=== PATIENT | female | born 1950 | race Caucasian/White ===

== ENCOUNTER 2020-05-22 21:45 | Emergency (ER) | payer MEDICARE, OTHER ==
[2020-05-22] MEDS ORDERED: Ondansetron 4 MG Tab.DIS PO ONE (22:24)
[2020-05-22] MEDS ORDERED: Lactated Ringers 1,000 ML IV ONE (22:27)
--- NOTE | 2020-05-22 22:34 | EDM.PDOC ---
ED HPI GENERAL MEDICAL PROBLEM - General Chief Complaint: Abdominal Pain Stated Complaint: DRY HEAVES Time Seen by Provider: 05/22/20 22:15 Source of Information: Reports: Patient, Family, Old Records, RN History Limitations: Reports: No Limitations - History of Present Illness INITIAL COMMENTS - FREE TEXT/NARRATIVE: 70 yo female with a hx of a functioning ileostomy and frequent bouts of diarrhea related to this presents with her for abrupt onset a few hrs ago of diarrhea, abdominal cramping, and vomiting. No fever, but has chills. No known exposures. 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 DIRECTOR: Reports: Other (see below) (loperamide) Abdomen Pain Score (Numeric/FACES): 10 - Related Data Allergies Allergy/AdvReac Type Severity Reaction Status Date / Time cobalt Allergy Swelling Verified 05/22/20 22:04 nickel Allergy Swelling Verified 05/22/20 22:04 contrast dye Allergy Swelling Uncoded 05/22/20 22:04 Home Meds: Home Meds Loperamide [Imodium] 2 mg PO ASDIRECTED 05/22/20 [History] Past Medical History Cardiovascular History: Reports: Other (See Below) 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 Respiratory History: Reports: Other (See Below) Other Respiratory History: only the right lung works Phrenic nerve cut on the left for the heart tumor surgery Gastrointestinal History: Reports: Other (See Below) Other Gastrointestinal History: crohns Genitourinary History: Reports: None 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: Musculoskeletal History: Reports: None Neurological History: Reports: None Psychiatric History: Reports: None Endocrine/Metabolic History: Reports: None Hematologic History: Reports: B12 Deficiency Immunologic History: Reports: None Oncologic (Cancer) History: Reports: Breast, Malignant Melanoma Dermatologic History: Reports: Eczema, Urticaria - Infectious Disease History Infectious Disease History: Reports: Chicken Pox, Measles, Mumps - Past Surgical History HEENT Surgical History: Reports: Other (See Below) Other HEENT Surgeries/Procedures: Throat surgery Cardiovascular Surgical History: Reports: Other (See Below) Other Cardiovascular Surgeries/Procedures: tumor removed from top of heart GI Surgical History: Reports: Colon, Other (See Below) Other GI Surgeries/Procedures: iliostomy Social & Family History - Tobacco Use Tobacco Use Status *Q: Former Tobacco User Used Tobacco, but Quit: Yes Month/Year Tobacco Last Used: 25 years - Caffeine Use Caffeine Use: Reports: Coffee - Recreational Drug Use Recreational Drug Use: No ED ROS GENERAL - Review of Systems Review Of Systems: See Below Constitutional: Reports: Malaise, Decreased Appetite HEENT: Reports: No Symptoms Respiratory: Reports: No Symptoms Cardiovascular: Reports: No Symptoms Endocrine: Reports: No Symptoms GI/Abdominal: Reports: Abdominal Pain, Diarrhea, Nausea, Vomiting. Denies: Black Stool, Bloody Stool, Constipation, Distension, Hematemesis, Hematochezia : Reports: No Symptoms Musculoskeletal: Reports: No Symptoms Skin: Reports: No Symptoms Neurological: Reports: No Symptoms Psychiatric: Reports: No Symptoms ED EXAM, GI/ABD - Physical Exam Exam: See Below Exam Limited By: No Limitations General Appearance: Alert, WD/WN, Mild Distress Eyes: Bilateral: Normal Appearance Ears: Normal External Exam, Normal Canal, Hearing Grossly Normal, Normal TMs Nose: Normal Inspection, No Blood Throat/Mouth: Normal Inspection, Normal Lips, Normal Oropharynx, Normal Voice, No Airway Compromise Head: Atraumatic, Normocephalic Neck: Normal Inspection Respiratory/Chest: No Respiratory Distress, Lungs Clear, Normal Breath Sounds, No Accessory Muscle Use Cardiovascular: Regular Rate, Rhythm, No Edema GI/Abdominal Exam: No Distention, Tender (mild, diffuse), Abnormal Bowel Sounds (increased). No: Distended, Guarding, Rigid, Rebound Extremities: Normal Inspection, Normal Range of Motion, Non-Tender, No Pedal Edema Neurological: Alert, Oriented, CN II-XII Intact, Normal Cognition, No Motor/Se nsory Deficits Psychiatric: Normal Affect, Normal Mood Skin Exam: Warm, Dry, Intact, Normal Color, No Rash Course - Vital Signs Last Recorded V/S: Last Vital Signs Temp 36.1 C 05/22/20 21:56 Pulse 91 05/22/20 23:33 Resp 16 05/22/20 23:33 BP 135/67 05/22/20 23:33 Pulse Ox 95 05/22/20 23:33 - Orders/Labs/Meds Orders: Active Orders 24 hr Category Date Time Status CORONAVIRUS COVID-19, MARKIE Routine Lab 05/23/20 01:11 Ordered CULTURE BLOOD [BC] Stat Lab 05/22/20 22:38 Received CULTURE BLOOD [BC] Stat Lab 05/22/20 23:41 Received Lactated Ringers [Ringers, Lactated] 1,000 ml Med 05/23/20 00:45 Active IV ASDIRECTED Medication Orders Lactated Ringer's (Ringers, Lactated) 1,000 mls @ 500 mls/hr IV ASDIRECTED DEDRICK Last Admin: 05/23/20 01:28 Dose: 500 mls/hr Documented by: LORA Labs: Laboratory Tests 05/22/20 05/22/20 05/22/20 Range/Units 22:39 22:39 22:39 WBC 16.5 H (4.5-11.0) K/uL RBC 4.40 (3.30-5.50) M/uL Hgb 14.6 (12.0-15.0) g/dL Hct 42.9 (36.0-48.0) % MCV 98 (80-98) fL MCH 33 H (27-31) pg MCHC 34 (32-36) % Plt Count 350 (150-400) K/uL Sodium 146 (140-148) mmol/L Potassium 3.5 L (3.6-5.2) mmol/L Chloride 105 (100-108) mmol/L Carbon Dioxide 20 L (21-32) mmol/L Anion Gap 24.5 H (5.0-14.0) mmol/L BUN 21 H (7-18) mg/dL Creatinine 1.1 H (0.6-1.0) mg/dL Est Cr Clr Drug Dosing 45.82 mL/min Estimated GFR (MDRD) 49 L (>60) Glucose 179 H (74-106) mg/dL Lactic Acid 4.2 H (0.4-2.0) mmol/L Calcium 10.6 H (8.5-10.1) mg/dL C-Reactive Protein 0.57 H (0.0-0.3) mg/dL Urine Color (YELLOW) Urine Appearance (CLEAR) Urine pH (5.0-8.0) Ur Specific [place] (1.008-1.030) Urine Protein (NEGATIVE) mg/dL Urine Glucose (UA) (NEGATIVE) mg/dL Urine Ketones (NEGATIVE) mg/dL Urine Occult Blood (NEGATIVE) Urine Nitrite (NEGATIVE) Urine Bilirubin (NEGATIVE) Urine Urobilinogen (0.2-1.0) EU/dL Ur Leukocyte Esterase (NEGATIVE) Urine RBC (0-5) Urine WBC (0-5) Ur Epithelial Cells Amorphous Sediment Urine Bacteria Urine Mucus 05/23/20 Range/Units 00:26 WBC (4.5-11.0) K/uL RBC (3.30-5.50) M/uL Hgb (12.0-15.0) g/dL Hct (36.0-48.0) % MCV (80-98) fL MCH (27-31) pg MCHC (32-36) % Plt Count (150-400) K/uL Sodium (140-148) mmol/L Potassium (3.6-5.2) mmol/L Chloride (100-108) mmol/L Carbon Dioxide (21-32) mmol/L Anion Gap (5.0-14.0) mmol/L BUN (7-18) mg/dL Creatinine (0.6-1.0) mg/dL Est Cr Clr Drug Dosing mL/min Estimated GFR (MDRD) (>60) Glucose (74-106) mg/dL Lactic Acid (0.4-2.0) mmol/L Calcium (8.5-10.1) mg/dL C-Reactive Protein (0.0-0.3) mg/dL Urine Color Yellow (YELLOW) Urine Appearance Slightly cloudy A (CLEAR) Urine pH 5.0 (5.0-8.0) Ur Specific [place] >= 1.030 (1.008-1.030) Urine Protein Negative (NEGATIVE) mg/dL Urine Glucose (UA) Negative (NEGATIVE) mg/dL Urine Ketones Negative (NEGATIVE) mg/dL Urine Occult Blood Trace-intact H (NEGATIVE) Urine Nitrite Negative (NEGATIVE) Urine Bilirubin Negative (NEGATIVE) Urine Urobilinogen 0.2 (0.2-1.0) EU/dL Ur Leukocyte Esterase Negative (NEGATIVE) Urine RBC 0-5 (0-5) Urine WBC Not seen (0-5) Ur Epithelial Cells Not seen Amorphous Sediment Not seen Urine Bacteria Not seen Urine Mucus Few Meds: Medications Generic Name Dose Route Start Last Admin Trade Name Freq PRN Reason Stop Dose Admin Lactated Ringer's 1,000 mls @ 500 mls/hr 05/23/20 00:45 05/23/20 01:28 Ringers, Lactated IV 500 mls/hr ASDIRECTED DEDRICK Administration Discontinued Medications Generic Name Dose Route Start Last Admin Trade Name Freq PRN Reason Stop Dose Admin Hydromorphone HCl 0.5 mg 05/22/20 22:29 05/22/20 23:04 Hydromorphone 0.5 Mg/0.5 Ml Syringe IVPUSH 05/22/20 22:30 0.5 mg ONETIME ONE Administration Lactated Ringer's 1,000 mls @ 1,000 mls/hr 05/22/20 22:27 05/22/20 23:09 Ringers, Lactated IV 05/22/20 23:26 1,000 mls/hr BOLUS ONE Administration Ondansetron HCl 4 mg 05/22/20 22:24 05/22/20 23:03 Ondansetron 4 Mg Tab.Dis PO 05/22/20 22:25 4 mg ONETIME ONE Administration Ondansetron HCl 4 mg 05/22/20 22:59 05/22/20 23:08 Ondansetron 4 Mg/2 Ml Sdv IVPUSH 05/22/20 23:00 4 mg ONETIME ONE Administration - Radiology Interpretation Free Text/Narrative:: CT abd/pelvis without contrast- Impression: 1. 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 Otherwise no significant abnormality demonstrated along the gastrointestinal tract, within limitations of noncontrast technique. 2. Small nonobstructing left renal stone. No urinary obstruction. Please note that all CT scans at this facility use dose modulation, iterative reconstruction, and/or weight-based dosing when appropriate to reduce radiation dose to as low as reasonably achievable. Dictated by Shane Cook MD @ May 23 2020 12:57AM CT Results Date: 05/22/20 CT Results Time: 01:06 - Re-Assessments/Exams Free Text/Narrative Re-Assessment/Exam: 05/23/20 01:32 Feeling much better after our treatments. Was pretty convinced she wanted to go home. I was able to talk her into staying for another liter of IV fluids. Departure - Departure Time of Disposition: 02:25 Disposition: Home, Self-Care 01 Condition: Fair Clinical Impression: Nausea vomiting and diarrhea, Mild dehydration - Discharge Information *PRESCRIPTION DRUG MONITORING PROGRAM REVIEWED*: Not Applicable *COPY OF PRESCRIPTION DRUG MONITORING REPORT IN PATIENT REYES: Not Applicable Instructions: Diarrhea, Adult, [id number], Nausea and Vomiting, Adult, [id number] Referrals: Malik Holland MD [Primary Care Provider] - Forms: ED Department Discharge Additional Instructions: Take acetaminophen as needed for pain relief. Use Zofran as directed for nausea control. Use loperamide per package instructions as needed for diarrhea control. Drink enough fluids, consider sport drinks, to keep your urine light yellow in color. Eat foods that are easily digested like rice, chicken with rice soup or turkey with rice soup, jello, applesauce, dry white toast, yogurt, bananas, or soda crackers. Return if worse or not improving or consider follow up with your provider. Sepsis Event Note (ED) - Evaluation Sepsis Screening Result: Possible Sepsis Risk - Focused Exam Vital Signs: Vital Signs Temp Pulse Resp BP Pulse Ox 05/22/20 23:33 91 16 135/67 95 05/22/20 21:56 36.1 C 97 44 H 129/67 99 - My Orders Last 24 Hours: My Active Orders 05/22/20 22:38 CULTURE BLOOD [BC] Stat 05/22/20 23:41 CULTURE BLOOD [BC] Stat 05/23/20 00:45 Lactated Ringers [Ringers, Lactated] 1,000 ml IV ASDIRECTED 05/23/20 01:11 CORONAVIRUS COVID-19, MARKIE Routine - Assessment/Plan Last 24 Hours: My Active Orders 05/22/20 22:38 CULTURE BLOOD [BC] Stat 05/22/20 23:41 CULTURE BLOOD [BC] Stat 05/23/20 00:45 Lactated Ringers [Ringers, Lactated] 1,000 ml IV ASDIRECTED 05/23/20 01:11 CORONAVIRUS COVID-19, MARKIE Routine
[2020-05-22] MEDS ORDERED: Ondansetron 4 MG/2 ML SDV IVPUSH ONE (22:59)
[2020-05-22] MEDS: HYDROmorphone 0.5 MG/0.5 ML Syringe IVPUSH ONE (23:04)
[2020-05-23] MEDS ORDERED: Lactated Ringers 1,000 ML IV SCH (00:45)
--- NOTE | 2020-05-23 01:00 | CRLCT ---
Indication: Vomiting, diarrhea, elevated lactic acid Technique: Nonenhanced axial CT imaging through the abdomen and pelvis. Sagittal and coronal reconstructions are provided. Comparison: None Findings: There is unremarkable noncontrast appearance of the liver, gallbladder, spleen, pancreas, and adrenal glands. A 2 mm nonobstructing stone is noted in the lower pole of the left kidney. Kidneys are otherwise unremarkable. There is no abdominal lymphadenopathy. There is normal caliber of the abdominal aorta without significant atherosclerotic changes. The stomach and duodenum are unremarkable. There are surgical changes of total colectomy with left lower quadrant ileostomy. There are no abnormally dilated small bowel loops. There is no mesenteric edema. The urinary bladder is unremarkable. The uterus is absent. There is no adnexal mass or pelvic lymphadenopathy. The osseous structures are unremarkable. The included lung bases are clear. There is moderate elevation of the left hemidiaphragm. Impression: 1. 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 Otherwise no significant abnormality demonstrated along the gastrointestinal tract, within limitations of noncontrast technique. 2. Small nonobstructing left renal stone. No urinary obstruction. Please note that all CT scans at this facility use dose modulation, iterative reconstruction, and/or weight-based dosing when appropriate to reduce radiation dose to as low as reasonably achievable. Dictated by Shane Cook MD @ May 23 2020 12:57AM Signed by Dr. Shane Cook @ May 23 2020 12:57AM
[2020-05-23] MEDS ORDERED: Potassium Chloride 20 MEQ Tab.ER PO ONE (01:36)
== END 2020-05-23 02:45 | disposition home or self-care (01) ==
LOC: JP.ED 21:45
DX: E86.0 Dehydration (principal); R11.2 Nausea with vomiting, unspecified; R19.7 Diarrhea, unspecified; Z91.041 Radiographic dye allergy status; Z91.09 Other allergy status, other than to drugs and biological substances; Z79.899 Other long term (current) drug therapy; Z90.49 Acquired absence of other specified parts of digestive tract; Z87.891 Personal history of nicotine dependence; Z20.822 Contact with and (suspected) exposure to COVID-19
CPT/HCPCS: 36415; 74176; 80048; 81001; 83605; 85027; 86140; 87040; 96374; 96375; 99284; A9270; J1170; J2405; J7120; U0002; 99283

== ENCOUNTER 2020-12-31 08:36 | Emergency (ER) | payer MEDICARE, OTHER ==
--- NOTE | 2020-12-31 09:38 | EDM.PDOC ---
ED HPI GENERAL MEDICAL PROBLEM - General Chief Complaint: Respiratory Problem Stated Complaint: EASILY OUT OF BREATHE Time Seen by Provider: 12/31/20 09:15 Source of Information: Reports: Patient History Limitations: Reports: No Limitations - History of Present Illness INITIAL COMMENTS - FREE TEXT/NARRATIVE: 70-year-old female who tested positive for Covid 5 days ago is in today with mild shortness of breath and weakness. She is very anxious because her is currently in the hospital being treated for Covid. She had monoclonal antibody screening and is scheduled to have this but has not gotten a phone call yet. Coincidently while being evaluated, her phone rang and it was then calling about giving her the therapy. No fevers or chills, no significant shortness of breath, no nausea or vomiting. Onset: Gradual Duration: Day(s): (Ill for the last week) Associated Symptoms: Reports: Cough (Mild intermittent cough), Malaise, Weakness. 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 Respiratory History: Reports: Other (See Below) Other Respiratory History: only the right lung works Phrenic nerve cut on the left for the heart tumor surgery Gastrointestinal History: Reports: Other (See Below) Other Gastrointestinal History: crohns Genitourinary History: Reports: None 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: Musculoskeletal History: Reports: None Neurological History: Reports: None Psychiatric History: Reports: None Endocrine/Metabolic History: Reports: None Hematologic History: Reports: B12 Deficiency Immunologic History: Reports: None Oncologic (Cancer) History: Reports: Breast, Malignant Melanoma Dermatologic History: Reports: Eczema, Urticaria - Infectious Disease History Infectious Disease History: Reports: Chicken Pox, Measles, Mumps, Novel Coronavirus - Past Surgical History HEENT Surgical History: Reports: Other (See Below) Other HEENT Surgeries/Procedures: Throat surgery,partial esophagectomy Cardiovascular Surgical History: Reports: Other (See Below) Other Cardiovascular Surgeries/Procedures: tumor removed from top of heart GI Surgical History: Reports: Colon, Other (See Below) Other GI Surgeries/Procedures: iliostomy Social & Family History - Tobacco Use Tobacco Use Status *Q: Former Tobacco User Years of Tobacco use: 15 Packs/Tins Daily: 1 Used Tobacco, but Quit: Yes Month/Year Tobacco Last Used: 11/1994 - Caffeine Use Caffeine Use: Reports: Coffee, Tea - Recreational Drug Use Recreational Drug Use: No ED ROS GENERAL - Review of Systems Review Of Systems: See Below Constitutional: Reports: Malaise. 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 Denies: Throat Pain Respiratory: Reports: Cough. Denies: Shortness of Breath GI/Abdominal: Reports: No Symptoms Neurological: Reports: Weakness Psychiatric: Reports: Anxiety ED EXAM, GENERAL - Physical Exam Exam: See Below Exam Limited By: No Limitations General Appearance: Alert, No Apparent Distress Eye Exam: Bilateral Eye: Normal Inspection Respiratory/Chest: No Respiratory Distress, Lungs Clear Cardiovascular: Regular Rate, Rhythm. No: Tachycardia GI/Abdominal: Non-Tender Neurological: Alert, Oriented Psychiatric: Normal Affect, Normal Mood Skin Exam: Warm, Dry Course - Vital Signs Last Recorded V/S: Last Vital Signs Temp 96.6 F L 12/31/20 11:46 Pulse 63 12/31/20 11:46 Resp 18 12/31/20 11:46 BP 129/68 12/31/20 11:46 Pulse Ox 100 12/31/20 11:46 - Orders/Labs/Meds Meds: Medications Discontinued Medications Generic Name Dose Route Start Last Admin Trade Name Freq PRN Reason Stop Dose Admin Acetaminophen 650 mg 12/31/20 11:30 Acetaminophen 325 Mg Tab PO ONETIME PRN HEADACHE,CHILLS Diphenhydramine HCl 50 mg 12/31/20 11:30 Diphenhydramine 50 Mg/Ml Sdv IVPUSH ONETIME PRN ALLERGIC RXN Epinephrine HCl 0.3 mg 12/31/20 11:30 Epinephrine 1 Mg/Ml Sdv IM ONETIME PRN ALLERGIC RXN Famotidine 20 mg 12/31/20 11:30 Famotidine 20 Mg/2 Ml Sdv IV ONETIME PRN ALLERGIC RXN Sodium Chloride 1,000 mls @ 25 mls/hr 12/31/20 09:47 12/31/20 09:48 Normal Saline IV 25 mls/hr ASDIRECTED DEDRICK Administration Bamlanivimab 700 mg/ 160 mls @ 310 mls/hr 12/31/20 11:30 12/31/20 10:15 Etesevimab 1,400 mg/ Sodium IV 12/31/20 12:00 310 mls/hr Chloride ONETIME ONE Administration Methylprednisolone Sodium Succinate 125 mg 12/31/20 11:30 Methylprednisolone Sodium Succinate 125 Mg/2 Ml Sdv IVPUSH ONETIME PRN ALLERGIC RXN - Re-Assessments/Exams Free Text/Narrative Re-Assessment/Exam: 12/31/20 09:28 Patient is completely stable, O2 saturations 99% and lungs are clear. She is a good candidate for the monoclonal antibody therapy and she received a call for the order while in the emergency room. This will be set up and given here in the emergency room and then she will be discharged. No further care needed. She can return if worsening. Departure - Departure Time of Disposition: 11:54 Disposition: Home, Self-Care 01 Clinical Impression: COVID-19 - Discharge Information Instructions: COVID-19 Referrals: Malik Holland MD [Primary Care Provider] - Forms: ED Department Discharge Care Plan Goals: Increase activity and diet as tolerated, return if shortness of breath or other concerns. Continue any current medications. Sepsis Event Note (ED) - Evaluation Sepsis Screening Result: No Definite Risk - Focused Exam Vital Signs: Vital Signs Temp Pulse Resp BP Pulse Ox 12/31/20 11:46 96.6 F L 63 18 129/68 100 12/31/20 10:46 96.6 F L 59 L 16 128/68 100 12/31/20 10:30 96.6 F L 61 18 120/65 100 12/31/20 10:15 96.4 F L 18 114/60 99 12/31/20 08:59 97.5 F 63 20 127/76 99
[2020-12-31] MEDS ORDERED: Sodium Chloride 0.9% 1,000 ML IV SCH (09:47)
[2020-12-31] MEDS ORDERED: diphenhydrAMINE 50 MG/ML SDV IVPUSH PRN (11:30)
[2020-12-31] MEDS ORDERED: Famotidine 20 MG/2 ML SDV IV PRN (11:30)
[2020-12-31] MEDS ORDERED: Acetaminophen 325 MG Tab PO PRN (11:30)
[2020-12-31] MEDS ORDERED: EPINEPHrine 1 MG/ML SDV IM PRN (11:30)
[2020-12-31] MEDS ORDERED: methylPREDNISolone Sodium Succinate 125 MG/2 ML SDV IVPUSH PRN (11:30)
[2020-12-31] MEDS ORDERED: Bamlanivimab 700 MG, ETESEVIMAB 1,400 MG in Sodium Chloride 0.9% 100 ML IV ONE (11:30)
== END 2020-12-31 11:55 | disposition home or self-care (01) ==
LOC: JP.ED 08:36
DX: U07.1 COVID-19 (principal); Z88.8 Allergy status to other drugs, medicaments and biological substances; Z91.041 Radiographic dye allergy status; Z91.048 Other nonmedicinal substance allergy status; Z87.891 Personal history of nicotine dependence
CPT/HCPCS: 99284; J7030; M0245; Q0245

== ENCOUNTER 2022-06-17 21:54 | Emergency (ER) | payer MEDICARE, OTHER ==
[2022-06-17] MEDS ORDERED: Bacitracin Oint 1 GM U/D Packet TOP ONE (22:20)
[2022-06-17] MEDS ORDERED: Lidocaine 1% with EPINEPHrine 1:100,000 50 ML MDV INFILT STA (22:20)
[2022-06-17 22:33] LABS: BASOPHILS ABSOLUTE AUTO 0.03 K/uL (0.00-0.10); BASOPHILS PERCENT AUTO 0.8 % (0.1-1.3); EOSINOPHILS ABSOLUTE AUTO 0.17 K/uL (0.00-0.40); EOSINOPHILS PERCENT AUTO 4.5 % (0.0-5.4); HEMOGLOBIN 11.5 g/dL (11.2-15.5); IMMATURE GRAN PERCENT AUTO 0.3 % (0.0-0.7); LYMPHOCYTES ABSOLUTE AUTO 1.28 K/uL (0.8-3.3); LYMPHOCYTES PERCENT AUTO 34.1 % (11.4-47.7); MEAN CORPUSCULAR HEMOGLOBIN 32.6 pg (31.6-35.5); MEAN CORPUSCULAR HGB CONC 32.9 g/dL (31.6-35.5); MEAN CORPUSCULAR VOLUME 99.2 fL (81.4-99.0); MONOCYTES ABSOLUTE AUTO 0.46 K/uL (0.20-0.90); MONOCYTES PERCENT AUTO 12.3 % (3.3-12.6); PLATELET COUNT,PLT 223 K/uL (130-375); RED BLOOD CELL COUNT 3.53 M/uL (3.77-5.24); WHITE BLOOD CELL COUNT,WBC 3.8 K/uL (3.2-11.0)
[2022-06-17 22:40] LABS: IMMATURE GRAN ABSOLUTE AUTO 0.01 K/uL (0.00-0.23)
[2022-06-17] MEDS ORDERED: Diphtheria,Pertussis(Acell),Tetanus Vaccine 0.5 ML Syringe IM ONE (22:42)
[2022-06-17 22:54] LABS: INR 1.2; PTT,PARTIAL THROMBOPLSTIN TIME 24.3 sec (21.8-27.3)
== END 2022-06-17 23:32 | disposition home or self-care (01) ==
LOC: JP.ED 21:54
DX: I83.891 Varicose veins of right lower extremity with other complications (principal); Z23 Encounter for immunization; Z91.041 Radiographic dye allergy status; Z88.8 Allergy status to other drugs, medicaments and biological substances; Z86.16 Personal history of COVID-19; Z87.891 Personal history of nicotine dependence
CPT/HCPCS: 12001; 36415; 85025; 85610; 85730; 90471; 90715; 99284-25

== ENCOUNTER 2022-07-06 08:59 | Emergency (ER) | payer MEDICARE, OTHER ==
[2022-07-06 09:14] LABS: BASOPHILS ABSOLUTE AUTO 0.05 K/uL (0.00-0.10); BASOPHILS PERCENT AUTO 1.2 % (0.1-1.3); EOSINOPHILS ABSOLUTE AUTO 0.14 K/uL (0.00-0.40); EOSINOPHILS PERCENT AUTO 3.4 % (0.0-5.4); HEMATOCRIT 37.8 % (34.3-46.0); HEMOGLOBIN 12.7 g/dL (11.2-15.5); IMMATURE GRAN ABSOLUTE AUTO 0.01 K/uL (0.00-0.23); IMMATURE GRAN PERCENT AUTO 0.2 % (0.0-0.7); LYMPHOCYTES ABSOLUTE AUTO 1.44 K/uL (0.8-3.3); LYMPHOCYTES PERCENT AUTO 34.5 % (11.4-47.7); MEAN CORPUSCULAR HEMOGLOBIN 32.6 pg (31.6-35.5); MEAN CORPUSCULAR HGB CONC 33.6 g/dL (31.6-35.5); MEAN CORPUSCULAR VOLUME 96.9 fL (81.4-99.0); MONOCYTES ABSOLUTE AUTO 0.49 K/uL (0.20-0.90); MONOCYTES PERCENT AUTO 11.8 % (3.3-12.6); NEUTROPHILS ABSOLUTE AUTO 2.04 K/uL (1.0-7.6); NEUTROPHILS PERCENT AUTO 48.9 % (40.0-78.1); PLATELET COUNT,PLT 306 K/uL (130-375); WHITE BLOOD CELL COUNT,WBC 4.2 K/uL (3.2-11.0)
[2022-07-06] MEDS ORDERED: Sodium Chloride 0.9% 1,000 ML IV SCH (09:15)
[2022-07-06 09:25] LABS: APPEARANCE,URINE CLEAR (CLEAR); BILIRUBIN,URINE NEGATIVE (NEGATIVE); COLOR,URINE YELLOW (YELLOW); GLUCOSE,URINE NEGATIVE (NEGATIVE); KETONES,URINE NEGATIVE (NEGATIVE); LEUKOCYTE ESTERASE,URINE NEGATIVE (NEGATIVE); NITRITE,URINE NEGATIVE (NEGATIVE); OCCULT BLOOD,URINE NEGATIVE (NEGATIVE); PH,URINE 5.5 (5.0-8.0); PROTEIN,URINE NEGATIVE (NEGATIVE); UROBILINOGEN,URINE 0.2 EU/dL (0.2-1.0)
[2022-07-06 09:33] LABS: A/G RATIO 0.9 (1.2-2.2); ALANINE AMINOTRANSFERASE,ALT 24 U/L (12-78); ALBUMIN 3.8 g/dL (3.4-5.0); ALKALINE PHOSPHATASE 79 U/L (46-116); ASPARTATE AMNIOTRANSFERASE,AST 24 U/L (15-37); BILIRUBIN TOTAL 0.8 mg/dL (0.2-1.0); BLOOD UREA NITROGEN,BUN 13 mg/dL (7-18); CALCIUM 9.3 mg/dL (8.5-10.1); CARBON DIOXIDE,CO2 26 mmol/L (21-32); CHLORIDE,CL 101 mmol/L (100-108); CREATININE 0.9 mg/dL (0.6-1.0); ESTIMATED GFR 69 mL/min (>60); GLUCOSE RANDOM 125 mg/dL (74-106); LIPASE 40 U/L (73-393); PROTEIN TOTAL,TP 7.9 g/dL (6.4-8.2); SODIUM,NA 136 mmol/L (140-148); TROPONIN I HIGH SENSITIVITY 11.8 pg/mL (<=60.3)
[2022-07-06 09:35] LABS: AMORPHOUS SEDIMENT,URINE FEW; BACTERIA,URINE RARE; EPITHELIAL CELLS,URINE NOT SEEN; MUCUS,URINE FEW; RBC,URINE 0-5 (0-5); WBC,URINE 0-5 (0-5)
[2022-07-06 09:35] LABS: ANION GAP 11.9 mmol/L (5.0-14.0); POTASSIUM,K 2.9 mmol/L (3.6-5.2)
[2022-07-06] MEDS ORDERED: Potassium Chloride 20 MEQ Tab.ER PO ONE (10:13)
== END 2022-07-06 10:35 | disposition home or self-care (01) ==
LOC: JP.ED 08:59
DX: R55 Syncope and collapse (principal); Z91.041 Radiographic dye allergy status; Z88.8 Allergy status to other drugs, medicaments and biological substances; Z86.16 Personal history of COVID-19
CPT/HCPCS: 36415; 70450; 71045; 80053; 81001; 82947; 83605; 83690; 84484; 85025; 96360; 99285; A9270; J7030

== ENCOUNTER 2023-10-16 02:49 | Emergency (ER) | payer MEDICARE, OTHER ==
[2023-10-16 03:21] LABS: BASOPHILS PERCENT AUTO 0.1 % (0.1-1.3); HEMATOCRIT 37.5 % (34.3-46.0); HEMOGLOBIN 13.3 g/dL (11.2-15.5); IMMATURE GRAN PERCENT AUTO 0.2 % (0.0-0.7); LYMPHOCYTES PERCENT AUTO 2.3 % (11.4-47.7); MEAN CORPUSCULAR HEMOGLOBIN 32.5 pg (31.6-35.5); MEAN CORPUSCULAR HGB CONC 35.5 g/dL (31.6-35.5); MEAN CORPUSCULAR VOLUME 91.7 fL (81.4-99.0); MONOCYTES ABSOLUTE AUTO 0.33 K/uL (0.20-0.90); MONOCYTES PERCENT AUTO 3.7 % (3.3-12.6); NEUTROPHILS ABSOLUTE AUTO 8.28 K/uL (1.0-7.6); NEUTROPHILS PERCENT AUTO 93.7 % (40.0-78.1); PLATELET COUNT,PLT 348 K/uL (130-375); RED BLOOD CELL COUNT 4.09 M/uL (3.77-5.24); WHITE BLOOD CELL COUNT,WBC 8.8 K/uL (3.2-11.0)
[2023-10-16 03:24] LABS: BASOPHILS ABSOLUTE AUTO 0.01 K/uL (0.00-0.10); IMMATURE GRAN ABSOLUTE AUTO 0.02 K/uL (0.00-0.23)
[2023-10-16] MEDS: Sodium Chloride 0.9% 1,000 ML IV SCH (03:35)
[2023-10-16] MEDS: droPERidol 5 MG/2 ML SDV IVPUSH ONE (03:38)
[2023-10-16 04:11] LABS: C-REACTIVE PROTEIN 0.5 mg/dL (<0.50); CALCIUM 9.9 mg/dL (8.5-10.1); CREATININE 1.1 mg/dL (0.6-1.0); EST CRCL DRUG DOSING (CG) 40.31 mL/min; POTASSIUM,K 4.3 mmol/L (3.6-5.2)
[2023-10-16 04:12] LABS: ANION GAP 17.3 mmol/L (5.0-14.0)
== END 2023-10-16 06:56 | disposition home or self-care (01) ==
LOC: JP.ED 02:49
DX: Z93.3 Colostomy status (principal); Z91.041 Radiographic dye allergy status; Z88.8 Allergy status to other drugs, medicaments and biological substances; Z79.82 Long term (current) use of aspirin
CPT/HCPCS: 36415; 80048; 83605; 85025; 86140; 96361; 96374; 99283; 99284-25; J1790; J7030